=== PATIENT | female | born 1980 | race Caucasian/White ===

== ENCOUNTER 2016-06-14 17:56 | Emergency (ER) | payer OTHER ==
[~2016-06-14] VITALS: Ht 160 cm; Wt 100.0 kg
[2016-06-14 18:03] VITALS: BP 101/65; TEMP 98.4; O2SAT 99
[2016-06-14 18:05] VITALS: BP 156/88; PULSE 98; RESP 12; TEMP 98.2; O2SAT 98
--- NOTE | 2016-06-14 19:28 | PD ---
HPI Chief Complaint: Eye Problems/Injury Time Seen by Provider: 19:21 Travel History International Travel<30 days: No Contact w/Intl Traveler<30days: No Traveled to known affect area: No History of Present Illness HPI 36-year-old white female presents to emergency department with complaints of a foreign body in her right eye. She states that she was seen at an black leather buffer' s office and she was referred to 2 different ophthalmology groups but there was no one to see her today. She was referred to the ER. She states that this started yesterday evening. She states that she had some mild irritation in her right eye. She states that he continue to bother her. She states that it caused her to rub her eye and have some tearing. Her eye has subsequently become increasingly red and irritated. She has had a slight film in her eye from the tearing. She denies any sensation of a foreign body. There is no history of a foreign body. She does wear glasses. No contacts. She denies any visual changes otherwise. No recent illness. She has not had a tetanus shot over 5 years. 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,, migraines, hypertension Tetanus Vaccination: > 5 Years ?: Not LMP: 06/02/2016 Past Surgical History Surgical History: No Previous Surgery Social History Alcohol Use: No Tobacco Use: No Substance Use: No Allergies-Medications (Allergen,Severity, Reaction): Coded Allergies: No Known Allergies (Unverified , 06/14/16) Reported Meds & Prescriptions Reported Meds & Active Scripts Active No Active Prescriptions or Reported Medications Review of Systems Except as stated in HPI: all other systems reviewed are Neg General / Constitutional: No: Fever, Chills Eyes: Positive: Redness, Pain (mild burning), Tearing, Visual changes (film over the eye due to tearing), No: Diploplia, Blurred Vision, Photophobia, Drainage, Foreign Body Sensation HENT: Positive: Headaches, Neck Stiffness, No: Sore Throat Cardiovascular: No: Chest Pain or Discomfort, Tachycardia Respiratory: No: Cough, Shortness of Breath Gastrointestinal: No: Nausea, Vomiting Genitourinary: No: Frequency, Dysuria Musculoskeletal: No: Arthralgias, Pain Skin: No Rash, No Itching Physical Exam Narrative GENERAL: Well-developed, well-nourished in no acute distress. Nontoxic appearing. HEAD: Normocephalic, atraumatic. EYES: Pupils equal round and reactive. Extraocular motions intact. No scleral icterus. No injection or drainage in the left eye. The right eye is injected. There is edema of the sclera. There is a small 1 mm foreign body appearing lesion with heavy injection over the temporal sclera. It appears to be mobile. There is no foreign body under the lids. The cornea is clear. Fluorescein stain is negative. Visual acuity in the right eye 20/25, visual acuity 20/20 in the left eye. ENT: TMs clear without erythema. The external auditory canals clear. Nose: clear . Posterior pharynx is pink and moist. No tonsillar edema or exudate. Uvula midline. Airway patent. NECK: Trachea midline.Supple, nontender, moves head freely. No central bony tenderness or spasm. CARDIOVASCULAR: Regular rate and rhythm without murmurs, gallops, or rubs. RESPIRATORY: Clear to auscultation. Breath sounds equal bilaterally. No wheezes , rales, or rhonchi. GASTROINTESTINAL: Abdomen soft, non-tender, nondistended. No hepato-splenomegaly , or palpable masses. No guarding. EXTREMITIES: No clubbing, cyanosis, or edema. No joint tenderness, effusion, or edema noted. BACK: Nontender without deformity or crepitance. No flank tenderness. Data Data Last Documented VS Vital Signs Date Time Temp Pulse Resp B/P Pulse Ox O2 Delivery O2 Flow Rate FiO2 06/14/16 18:05 98.2 98 12 156/88 98 Room Air Orders Tetanus/Diphtheria Tox Adult (Tetanus/Di (06/14/16 19:30) MDM Medical Decision Making Medical Screen Exam Complete: Yes Emergency Medical Condition: Yes Medical Record Reviewed: Yes Differential Diagnosis MDM: High Differential diagnoses: Acute conjunctivitis (bacterial, viral, allergic, traumatic), glaucoma, iritis, traumatic globe injury, foreign body, corneal abrasion, corneal ulcer Narrative Course Patient appears to have a question of a foreign body in the temporal aspect of her sclera. She has a large amount of scleral edema. The foreign body does not appear to come off the skin with a Q-tip. There is no fluorescein uptake on the initial evaluation. The case has been discussed with Dr. Gates the historical archeologist on-call. She has agreed to see the patient in follow-up tomorrow. She is to have the patient call the office first thing in the morning and she will be squeeze into the office. She agrees with erythromycin ointment. This is right eye foreign body Diagnosis Primary Impression: Foreign body of right eye Qualified Code: T15.91XA - Foreign body of right eye, initial encounter Referrals: Josy Gates MD 1 day Patient Instructions: General Instructions Additional Instructions: Rest. Erythromycin ointment one ribbon every 4-6 hours. No rubbing. Cool compress. Call Dr. Gates's office at 9:00 in the morning and she will see in the office. Return to the ER if any problems. Med/Other Pt SpecificInfo: Prescription(s) given Scripts No Active Prescriptions or Reported Meds Disposition: 01 DISCHARGE HOME Condition: Gus London Jun 14, 2016 19:28
[2016-06-14] MEDS ORDERED: TETANUS/DIPHTHERIA TOXOID ADULT 0.5 ML VIAL IM ONE (19:30)
[2016-06-14] MEDS ORDERED: ERYTHROMYCIN 0.5% OPTH OINT 3.5 GM TUBO RIGHT EYE ONE (19:45)
[2016-06-15] MEDS ORDERED: PRED1SUS6 RIGHT EYE (14:56)
[2016-06-15] MEDS ORDERED: MEDR4PAK PO (14:56)
== END 2016-06-14 20:02 | disposition home or self-care (01) ==
LOC: NEPB 17:56
DX: T15.91XA Foreign body on external eye, part unspecified, right eye, initial encounter (principal); I10 Essential (primary) hypertension; Z23 Encounter for immunization; X58.XXXA Exposure to other specified factors, initial encounter; Y93.9 Activity, unspecified; Y92.9 Unspecified place or not applicable
CPT/HCPCS: 90471; 90714